=== PATIENT | female | born 2000 | race Caucasian/White ===

== ENCOUNTER → 2020-10-11 | Outpatient (CLI) | payer BC ==
[2016-05-23 15:00] VITALS: BP 142/80
[~2020-10-11] MED LIST: AMOXICILLIN 8751 TAB PO; GOOD NEIGHBOR150 MG PO; NAPROXEN D/R500 MG PO; PROVENTIL0.09 MG/A1 INH; ULTRAM50 M1 PO; ZYRTEC10 M3 PO; ZYRTEC10 MG PO
[2020-10-11 14:29] LABS: ALBUMIN 4.5 g/dL (3.5-5.0); POTASSIUM 3.9 mmol/L (3.5-5.1)
[2020-10-11 14:31] LABS: CALCIUM 9.2 mg/dL (8.3-10.5)
[2020-10-11 14:32] LABS: TOTAL PROTEIN 7.9 g/dL (6.4-8.3)
[2020-10-11 14:34] LABS: TOTAL BILIRUBIN 0.3 mg/dL (0.2-1.2)
[2020-10-11 14:36] LABS: EOS # 0.1 (0.04-0.40); EOS % 1.8 % (1.0-5.0); HEMATOCRIT 43.2 % (37.0-47.0); HEMOGLOBIN 13.7 g/dL (12.5-16.0); MEAN CELL VOLUME 88 fl (78-100); MEAN CORPUSCULAR HEMOGLOBIN 28 pg (27-31); MEAN CORPUSCULAR HGB CONC 32 g/dL (33-37); MEAN PLATELET VOLUME 8.9 fl (7.4-10.4); MONO # 0.6 (0.20-0.80); NEU # 3.5 (1.40-6.50); PLATELET COUNT 383 K/mm3 (130-400); RED CELL DISTRIBUTION WIDTH 13.5 % (11.5-14.5); WHITE BLOOD COUNT 6.2 K/mm3 (4.8-10.8)
== END ==
LOC: LAB 14:08
PROVIDERS: Family Medicine
DX: E55.9 Vitamin D deficiency, unspecified (principal); D64.9 Anemia, unspecified; E03.9 Hypothyroidism, unspecified; R55 Syncope and collapse

== ENCOUNTER → 2020-10-14 | Outpatient (CLI) | payer BC ==
[2016-05-23 15:00] VITALS: BP 142/80
== END ==
LOC: RAD 14:19
DX: R51.9 Headache, unspecified (principal)
CPT/HCPCS: A9585

== ENCOUNTER → 2021-03-15 | Outpatient (CLI) | payer BC ==
[2021-03-15 10:12] LABS: BASO # 0.05 (0.02-0.10); EOS % 2.3 % (1.0-5.0); HEMATOCRIT 44.7 % (37.0-47.0); HEMOGLOBIN 14.2 g/dL (12.5-16.0); MEAN CELL VOLUME 91 fl (78-100); MEAN CORPUSCULAR HEMOGLOBIN 29 pg (27-31); MEAN CORPUSCULAR HGB CONC 32 g/dL (33-37); MEAN PLATELET VOLUME 8.9 fl (7.4-10.4); MONO # 0.63 (0.20-0.80); NEU # 5.23 (1.40-6.50); PLATELET COUNT 347 K/mm3 (130-400); RED CELL DISTRIBUTION WIDTH 12.9 % (11.5-14.5); WHITE BLOOD COUNT 8.6 K/mm3 (4.8-10.8)
[2021-03-15 10:29] LABS: ALBUMIN 4.6 g/dL (3.5-5.0); POTASSIUM 4.4 mmol/L (3.5-5.1)
[2021-03-15 10:31] LABS: TOTAL PROTEIN 8.1 g/dL (6.4-8.3)
[2021-03-15 10:33] LABS: TOTAL BILIRUBIN 0.3 mg/dL (0.2-1.2)
[2021-03-15 22:57] LABS: ESTRADIOL 99 pg/mL (()); FOLLICLE STIMULATING HORMONE 5.3 mIU/mL (()); LUTENIZING HORMONE 7.9 mIU/mL (())
[2021-03-15 22:58] LABS: PROGESTERONE 0.2 ng/mL (()); TESTOSTERONE 34 ng/dL (14-53)
== END ==
LOC: LAB 09:53
PROVIDERS: Family Medicine
DX: Z00.00 Encounter for general adult medical examination without abnormal findings (principal); E55.9 Vitamin D deficiency, unspecified; E78.5 Hyperlipidemia, unspecified; R53.83 Other fatigue; Z20.822 Contact with and (suspected) exposure to COVID-19

== ENCOUNTER → 2024-06-25 | Outpatient (CLI) | payer BC ==
[2024-06-25 10:42] LABS: BASO # 0.04 K/mm3 (0.02-0.10); EOS # 0.17 K/mm3 (0.04-0.40); EOS % 2.7 % (1.0-5.0); HEMATOCRIT 40.4 % (37.0-47.0); HEMOGLOBIN 12.9 g/dL (12.5-16.0); LYMPH# 2.73 K/mm3 (1.50-4.00); MEAN CELL VOLUME 86 fl (78-100); MEAN CORPUSCULAR HEMOGLOBIN 27 pg (27-31); MEAN CORPUSCULAR HGB CONC 32 g/dL (33-37); MEAN PLATELET VOLUME 8.6 fl (7.4-10.4); MONO # 0.44 K/mm3 (0.20-0.80); NEU # 2.88 K/mm3 (1.40-6.50); PLATELET COUNT 367 K/mm3 (130-400); RED BLOOD COUNT 4.72 M/mm3 (4.10-5.30); RED CELL DISTRIBUTION WIDTH 13.3 % (11.5-14.5); WHITE BLOOD COUNT 6.3 K/mm3 (4.8-10.8)
[2024-06-25 10:51] LABS: ALBUMIN 4.2 g/dL (3.5-5.0)
[2024-06-25 10:52] LABS: CALCIUM 9.8 mg/dL (8.3-10.5)
[2024-06-25 10:53] LABS: TOTAL PROTEIN 7.2 g/dL (6.4-8.3)
[2024-06-25 10:55] LABS: TOTAL BILIRUBIN 0.3 mg/dL (0.2-1.2)
== END ==
LOC: LAB 10:28
PROVIDERS: Family Medicine
DX: I10 Essential (primary) hypertension (principal); E55.9 Vitamin D deficiency, unspecified; E03.9 Hypothyroidism, unspecified; E78.5 Hyperlipidemia, unspecified